=== PATIENT | male | born 1970 | race Caucasian/White ===

== ENCOUNTER 2016-06-07 18:57 | Emergency (ER) | payer OTHER ==
[2016-06-07 19:18] VITALS: BP 124/67
--- NOTE | 2016-06-07 19:45 | EDM.PDOC ---
ED HPI GENERAL MEDICAL PROBLEM - General Chief Complaint: General Stated Complaint: chills, body aches Time Seen by Provider: 06/07/16 19:05 Source of Information: Reports: Patient History Limitations: Reports: No limitations - History of Present Illness INITIAL COMMENTS - FREE TEXT/NARRATIVE: Has 1.5 days of sinus congestion, ear pressure, thick "swelling" throat. Fever started this AM, having some aches and fatigue. 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 Generalized Pain Score (Numeric/FACES): 7 - Related Data Allergies Allergy/AdvReac Type Severity Reaction Status Date / Time No Known Allergies Allergy Verified 06/07/16 19:27 Home Meds: Home Meds Loratadine/Pseudoephedrine [Claritin-D 24 Hour Tablet] 1 each PO DAILY PRN 12/24 [History] Ibuprofen 800 mg PO Q6HR PRN 06/07/16 [History] Pseudoephedrine HCl [Sudafed] 30 mg PO ASDIRECTED PRN 06/07/16 [History] Social & Family History - Tobacco Use Smoking Status *Q: Current Every Day Smoker Years of Tobacco use: 30 Packs/Tins Daily: 1 - Caffeine Use Caffeine Use: Reports: Coffee, Soda - Alcohol Use Days Per Week of Alcohol Use: 2 - Recreational Drug Use Recreational Drug Use: No ED ROS GENERAL - Review of Systems Review Of Systems: ROS reveals no pertinent complaints other than HPI. ED EXAM, GENERAL - Physical Exam Exam: See Below Exam Limited By: No limitations General Appearance: alert, WD/WN, no apparent distress Eye Exam: bilateral eye: EOMI, PERRL Ears: normal external exam, normal canal, hearing grossly normal, other (Serous otitis bilaterally) Nose: nasal drainage Throat/Mouth: Normal inspection, Normal oropharynx, Normal voice, No airway compromise Head: atraumatic, normocephalic Neck: normal inspection, supple, non-tender, full range of motion. No: lymphadenopathy (L), lymphadenopathy (R) Respiratory/Chest: no respiratory distress, lungs clear, normal breath sounds, no accessory muscle use Cardiovascular: normal peripheral pulses, regular rate, rhythm, no edema, no JVD , no murmur GI/Abdominal: soft, non tender Back Exam: normal inspection, full range of motion Extremities: normal inspection, normal range of motion, non-tender, no pedal edema, normal capillary refill Neurological: alert, oriented, CN II-XII intact, normal cognition, normal gait, no motor/sensory deficits Psychiatric: normal affect, normal mood Skin Exam: Warm, Dry, Intact, Normal color, No rash. No: Diaphoretic Lymphatic: no adenopathy Course - Vital Signs Last Recorded V/S: Last Vital Signs Temp 37.4 C 06/07/16 19:16 Pulse 96 06/07/16 19:16 Resp 18 06/07/16 19:16 BP 124/67 06/07/16 19:16 Pulse Ox 96 06/07/16 19:16 Departure - Departure Time of Disposition: 19:56 Disposition: Home, Self-Care 01 Condition: good Clinical Impression: Influenza B Forms: ED Department Discharge - Problem List Review Problem List Initiated/Reviewed/Updated: No - Assessment/Plan Assessment:: Influenza B (1 - 1.5 days) Plan: Tamiflu Prednisone for throat (3 days) Robitussin PRN Warnings given
== END 2016-06-07 20:15 | disposition home or self-care (01) ==
LOC: LL.ED 18:57
DX: J10.1 Influenza due to other identified influenza virus with other respiratory manifestations (principal); F17.210 Nicotine dependence, cigarettes, uncomplicated
CPT/HCPCS: 87804; 99283

== ENCOUNTER 2017-01-10 08:43 | Emergency (ER) | payer OTHER ==
[2017-01-10] MEDS ORDERED: Sodium Chloride 0.9% 10 ML Syringe FLUSH PRN (08:51)
[2017-01-10] MEDS ORDERED: Tamsulosin 0.4 MG Cap.ER PO ONE (08:53)
[2017-01-10] MEDS ORDERED: Ketorolac 30 MG/ML SDV IVPUSH ONE (08:53)
[2017-01-10] MEDS ORDERED: Sodium Chloride 0.9% 1,000 ML IV SCH (09:00)
[2017-01-10 09:34] LABS: CHLORIDE,CL 107 mmol/L (98-107); SODIUM,NA 140 mmol/L (136-145)
[2017-01-10 10:20] VITALS: BP 133/83
[2017-01-10] MEDS ORDERED: Sodium Chloride 0.9% 1,000 ML IV ONE (10:27)
--- NOTE | 2017-01-10 10:38 | EDM.PDOC ---
ED HPI GENERAL MEDICAL PROBLEM - General Chief Complaint: Flank Pain Stated Complaint: Left side flank pain Time Seen by Provider: 01/10/17 09:09 Source of Information: Reports: Patient History Limitations: Reports: No Limitations - History of Present Illness INITIAL COMMENTS - FREE TEXT/NARRATIVE: Sudden left flank pain that started around 5:30 this morning. Wrapped around side. Accompanied by nausea and single episode emesis. History of kidney stone, this feels like that episode. [place] fine yesterday. No recent illness or diet change. No other pain/complaint. No hematuria. left flank Pain Score (Numeric/FACES): 9 - Related Data Allergies Allergy/AdvReac Type Severity Reaction Status Date / Time No Known Allergies Allergy Verified 06/07/16 19:27 Home Meds: Home Meds Loratadine/Pseudoephedrine [Claritin-D 24 Hour Tablet] 1 each PO DAILY PRN 12/24 [History] Ibuprofen 800 mg PO Q6HR PRN 06/07/16 [History] Pseudoephedrine HCl [Sudafed] 30 mg PO ASDIRECTED PRN 06/07/16 [History] Ketorolac [Toradol] 10 mg PO Q6H PRN #14 tablet 01/10/17 [Rx] Ondansetron [Zofran ODT] 4 mg PO Q6H PRN #10 tab.dis 01/10/17 [Rx] Tamsulosin [Flomax] 0.4 mg PO ONETIME PRN #10 cap.er 01/10/17 [Rx] oxyCODONE HCl/Acetaminophen [Percocet 5-325 mg Tablet] 1 each PO ASDIRECTED PRN #15 tablet 01/10/17 [Rx] Past Medical History Respiratory History: Reports: COPD (mild) Endocrine/Metabolic History: Reports: Obesity/BMI 30+ Social & Family History - Tobacco Use Smoking Status *Q: Heavy Tobacco Smoker Years of Tobacco use: 30 Packs/Tins Daily: 2 Used Tobacco, but Quit: No - Caffeine Use Caffeine Use: Reports: Soda - Alcohol Use Days Per Week of Alcohol Use: 2 - Recreational Drug Use Recreational Drug Use: No ED ROS GENERAL - Review of Systems Review Of Systems: See Below Constitutional: Reports: No Symptoms HEENT: Reports: No Symptoms Respiratory: Reports: No Symptoms Cardiovascular: Reports: No Symptoms GI/Abdominal: Reports: Nausea, Vomiting. Denies: Constipation, Diarrhea, Difficulty Swallowing, Distension, Hematemesis, Hematochezia : Reports: Flank Pain. Denies: Dysuria, Frequency, Hematuria, Incontinence, Pain, Urgency Musculoskeletal: Reports: No Symptoms Skin: Reports: No Symptoms Neurological: Reports: No Symptoms Psychiatric: Reports: No Symptoms Hematologic/Lymphatic: Reports: No Symptoms ED EXAM, RENAL/ - Physical Exam Exam: See Below Exam Limited By: No Limitations General Appearance: Alert, WD/WN, Moderate Distress Eye Exam: Bilateral Eye: EOMI, PERRL Ears: Normal External Exam Nose: Normal Inspection Throat/Mouth: Normal Inspection, Normal Voice, No Airway Compromise Head: Atraumatic, Normocephalic Neck: Normal Inspection, Supple, Non-Tender, Full Range of Motion Respiratory/Chest: No Respiratory Distress, No Accessory Muscle Use, Wheezing ( very faint, at bases posteriorly). No: Rales, Rhonchi, Stridor Cardiovascular: Normal Peripheral Pulses, Regular Rate, Rhythm, No Edema, No Murmur GI/Abdominal: Normal Bowel Sounds, Soft, No Distention, Tender (mild, just to left of umbilicus) (Male) Exam: Deferred Rectal (Males) Exam: Deferred Back Exam: CVA Tenderness (L) Extremities: Normal Inspection, Normal Range of Motion, Non-Tender, No Pedal Edema, Normal Capillary Refill Neurological: Alert, Oriented, Normal Cognition, Normal Gait, No Motor/Sensory Deficits Psychiatric: Anxious Skin Exam: Warm, Dry, Intact, Normal Color Course - Vital Signs Last Recorded V/S: Last Vital Signs Temp 37.1 C 01/10/17 09:15 Pulse 68 01/10/17 09:15 Resp 20 01/10/17 09:15 BP 133/83 01/10/17 09:15 Pulse Ox 98 01/10/17 09:15 - Orders/Labs/Meds Orders: Active Orders 24 hr Category Date Time Status Abdomen Pelvis wo Cont [CT] Stat Exams 01/10/17 08:52 Taken Saline Lock Insert [OM.PC] Routine Oth 01/10/17 08:51 Ordered Labs: Laboratory Tests 01/10/17 01/10/17 01/10/17 Range/Units 09:00 09:00 09:50 WBC 6.6 (4.0-10.2) K/uL RBC 5.20 (4.33-5.41) M/uL Hgb 15.5 (13.1-16.8) g/dL Hct 45.5 (39.0-49.0) % MCV 87.5 (84.0-98.0) fL MCH 29.8 (28.2-33.3) pg MCHC 34.1 (31.7-36.0) g/dL RDW 12.7 (11.2-14.1) % Plt Count 202 (150-350) K/uL Neut % (Auto) 57.7 (45.0-80.0) % Lymph % (Auto) 29.4 (10.0-50.0) % [place] % (Auto) 8.9 (2.0-14.0) % Eos % (Auto) 3.5 (0.0-5.0) % Baso % (Auto) 0.5 (0.0-2.0) % Neut # (Auto) 3.84 (1.40-7.00) K/uL Lymph # (Auto) 1.95 (0.50-3.50) K/uL [place] # (Auto) 0.59 (0.00-1.00) K/uL Eos # (Auto) 0.23 (0.00-0.50) K/uL Baso # (Auto) 0.03 (0.00-0.20) K/uL Sodium 140 (136-145) mmol/L Potassium 4.4 (3.5-5.1) mmol/L Chloride 107 (98-107) mmol/L Carbon Dioxide 24.7 (21.0-32.0) mmol/L BUN 24 H (7-18) mg/dL Creatinine 1.24 H (0.51-1.17) mg/dL Est Cr Clr Drug Dosing TNP Estimated GFR (MDRD) > 60 mL/min Glucose 153 H (74-106) mg/dL Calcium 8.7 (8.5-10.1) mg/dL Total Bilirubin 0.4 (0.2-1.0) mg/dL AST 12 L (15-37) U/L ALT 25 (12-78) U/L Alkaline Phosphatase 68 (46-116) IU/L Total Protein 7.4 (6.4-8.2) g/dL Albumin 3.7 (3.4-5.0) g/dL Specimen Type Urinvoid Urine Color Yellow Urine Appearance Clear Urine pH 5.0 (5.0-9.0) Ur Specific [place] 1.020 (1.005-1.030) Urine Protein Negative (NEGATIVE) mg/dL Urine Glucose (UA) Negative (NEGATIVE) mg/dL Urine Ketones Negative (NEGATIVE) mg/dL Urine Occult Blood Large H (NEGATIVE) Urine Nitrite Negative (NEGATIVE) Urine Bilirubin Negative (NEGATIVE) Urine Urobilinogen 0.2 (0.2-1.0) E.U./dL Ur Leukocyte Esterase Negative (NEGATIVE) Urine RBC 10-20 H /HPF Urine WBC 0-5 /HPF Ur Epithelial Cells Occasional /LPF Urine Bacteria Occasional (NONE TO FEW) /HPF Hyaline Casts Rare H (NEGATIVE) /LPF Urine Mucus Few H (NEGATIVE) /LPF Meds: Medications Discontinued Medications Generic Name Dose Route Start Last Admin Trade Name Freq PRN Reason Stop Dose Admin Sodium Chloride 1,000 mls @ 999 mls/hr 01/10/17 09:00 01/10/17 09:31 Normal Saline IV 999 mls/hr ASDIRECTED SHAWNA Administration Sodium Chloride 1,000 mls @ 999 mls/hr 01/10/17 10:27 01/10/17 10:33 Normal Saline IV 01/10/17 11:27 999 mls/hr .BOLUS ONE Administration Ketorolac Tromethamine 30 mg 01/10/17 08:53 01/10/17 09:04 Toradol IVPUSH 01/10/17 08:54 30 mg ONETIME ONE Administration Ondansetron HCl 4 mg 01/10/17 10:47 01/10/17 12:16 Zofran IVPUSH 01/10/17 10:48 Not Given ONETIME ONE Sodium Chloride 10 ml 01/10/17 08:51 Saline Flush FLUSH ASDIRECTED PRN Keep Vein Open Tamsulosin HCl 0.4 mg 01/10/17 08:53 01/10/17 09:21 Flomax PO 01/10/17 08:54 0.4 mg ONETIME ONE Administration - Radiology Interpretation Free Text/Narrative:: 4mm stone distal left ureter, 4-5cm above bladder. No hydronephrosis noted. Has multiple stones identified up within kidneys. CT Results Date: 01/10/17 CT Results Time: 09:28 - Re-Assessments/Exams Free Text/Narrative Re-Assessment/Exam: 01/10/17 10:43 Patient was much more comfortable after receiving Toradol. IV fluids given. Flomax given. Labs showed some hematuria as well as mild increase in BUN/Cr. Patient remained comfortable with minimal discomfort. Plan at this time is to treat as outpatient. Patient will be given Rx for Toradol, Flomax, Percocet, Zofran. He is to follow up with primary clinic Thursday or Thursday. At this time it appears that stone will likely pass on its own. He is to return to the ER if symptoms worsen again. 01/10/17 12:35 smoking cessation discussed and highly encouraged. Departure - Departure Time of Disposition: 11:40 Disposition: Home, Self-Care 01 Condition: Good Clinical Impression: Ureteric colic, Kidney stone on left side - Discharge Information Prescriptions: Ketorolac [Toradol] 10 mg PO Q6H PRN #14 tablet PRN Reason: Pain Ondansetron [Zofran ODT] 4 mg PO Q6H PRN #10 tab.dis PRN Reason: Nausea oxyCODONE HCl/Acetaminophen [Percocet 5-325 mg Tablet] 1 each PO ASDIRECTED PRN #15 tablet PRN Reason: Pain (Severe 7-10) Tamsulosin [Flomax] 0.4 mg PO ONETIME PRN #10 cap.er PRN Reason: Other Instructions: Ketorolac injection, Kidney Stones, [id number], Flank Pain, [id number], Tamsulosin capsules Referrals: Jocelynn Cabrera PA [Primary Care Provider] - Forms: ED Department Discharge Additional Instructions: Screen urine to try to obtain stone. Bring to clinic to have analysis performed to look at what kind of stone this is. Drink plenty of water and stay hydrated. This will help flush the stone through the system. Take Toradol every 6 hours for the next 3 days. You may stop if you pass that stone. Zofran may be used to help with nausea. Take the Percocet ONLY if pain is severe and you are unable to perform your job. Carry the Percocet with you along with Zofran and Toradol as an " emergency pack" in the future if you develop additional kidney stone symptoms. As discussed, there are multiple stones up in the kidneys that may cause problems in the future. Recommend follow up with your primary provider/clinic on Thursday or Thursday if you have not yet passed the stone. Follow up in the ER if pain/worsening symptoms redevelop. Do not take any other NSAIDS while using Toradol as it can really cause problems with your stomach and other things. This includes Motrin/Ibuprofen/ aspirin/Aleve. It is ok to take Tylenol (unless you are taking the Percocet, which has Tylenol within it) - My Orders Last 24 Hours: My Active Orders 01/10/17 08:51 Saline Lock Insert [OM.PC] Routine 01/10/17 08:52 Abdomen Pelvis wo Cont [CT] Stat - Assessment/Plan Last 24 Hours: My Active Orders 01/10/17 08:51 Saline Lock Insert [OM.PC] Routine 01/10/17 08:52 Abdomen Pelvis wo Cont [CT] Stat
[2017-01-10] MEDS ORDERED: Ondansetron 4 MG/2 ML SDV IVPUSH ONE (10:47)
== END 2017-01-10 12:05 | disposition home or self-care (01) ==
LOC: LL.ED 08:43
DX: N20.2 Calculus of kidney with calculus of ureter (principal); E66.9 Obesity, unspecified; J44.9 Chronic obstructive pulmonary disease, unspecified; F17.210 Nicotine dependence, cigarettes, uncomplicated; Z79.899 Other long term (current) drug therapy
CPT/HCPCS: 36415; 74176; 80053; 81001; 85025; 96361; 96374; 99284; A9270; J1885; J7030

== ENCOUNTER 2019-08-05 05:38 | Emergency (ER) | payer OTHER ==
[2019-08-05 05:48] VITALS: BP 183/103; PULSE 74
[2019-08-05] MEDS: Tamsulosin 0.4 MG Cap.ER PO ONE (06:10)
[2019-08-05] MEDS: Ondansetron 4 MG/2 ML SDV IVPUSH ONE ×2 (06:10→08:50)
[2019-08-05] MEDS: Sodium Chloride 0.9% 1,000 ML IV ONE ×2 (06:11→07:31)
[2019-08-05 06:33] LABS: CHLORIDE,CL 105 mmol/L (98-107); SODIUM,NA 138 mmol/L (136-145)
--- NOTE | 2019-08-05 06:34 | EDM.PDOC ---
ED HPI GENERAL MEDICAL PROBLEM - General Chief Complaint: Genitourinary Problem Stated Complaint: Kidney stone Time Seen by Provider: 08/05/19 06:15 Source of Information: Reports: Patient History Limitations: Reports: No Limitations - History of Present Illness INITIAL COMMENTS - FREE TEXT/NARRATIVE: Lower left back pain, nausea, dry heaves starting around 0200. Took 10mg tab Toradol at home. This helped with pain. Unable to locate Zofran/ Flomax. Has had several previous episodes of kidney stones and this feels like similar. No other acute changes reported. Left Flank Pain Score (Numeric/FACES): 6 - Related Data Allergies Allergy/AdvReac Type Severity Reaction Status Date / Time No Known Allergies Allergy Verified 06/07/16 19:27 Home Meds: Home Meds Loratadine/Pseudoephedrine [Claritin-D 24 Hour Tablet] 1 each PO DAILY PRN 12/24 [History] Ibuprofen 800 mg PO Q6HR PRN 06/07/16 [History] Pseudoephedrine HCl [Sudafed] 30 mg PO ASDIRECTED PRN 06/07/16 [History] oxyCODONE HCl/Acetaminophen [Percocet 5-325 mg Tablet] 1 each PO ASDIRECTED PRN #15 tablet 01/10/17 [Rx] Ketorolac [Toradol] 10 mg PO Q6H PRN #12 tablet 08/05/19 [Rx] Tamsulosin [Tamsulosin 24 Hr] 0.4 mg PO DAILY PRN #10 cap.er 08/05/19 [Rx] Past Medical History Respiratory History: Reports: COPD Genitourinary History: Reports: Renal Calculus Endocrine/Metabolic History: Reports: Obesity/BMI 30+ - Past Surgical History HEENT Surgical History: Reports: Oral Surgery Other HEENT Surgeries/Procedures: [place] tooth removal Social & Family History - Tobacco Use Smoking Status *Q: Current Every Day Smoker Years of Tobacco use: 20 Packs/Tins Daily: 0.5 - Caffeine Use Caffeine Use: Reports: Tea - Alcohol Use Alcohol Use History: No - Recreational Drug Use Recreational Drug Use: No ED ROS GENERAL - Review of Systems Review Of Systems: See Below Constitutional: Reports: Decreased Appetite. Denies: Fever, Chills, Malaise, Weakness, Fatigue, Night Sweats, Diaphoresis HEENT: Reports: No Symptoms Respiratory: Reports: No Symptoms Cardiovascular: Reports: No Symptoms GI/Abdominal: Reports: Decreased Appetite, Nausea, Vomiting. Denies: Abdominal Pain, Black Stool, Bloody Stool, Constipation, Diarrhea, Distension : Reports: Urgency. Denies: Dysuria, Frequency, Hematuria Musculoskeletal: Reports: No Symptoms Skin: Reports: No Symptoms Neurological: Reports: No Symptoms Psychiatric: Reports: No Symptoms ED EXAM, GENERAL - Physical Exam Exam: See Below Exam Limited By: No Limitations General Appearance: Alert, WD/WN, No Apparent Distress Ears: Hearing Grossly Normal Throat/Mouth: Normal Lips, Normal Voice, No Airway Compromise Head: Atraumatic, Normocephalic Neck: Supple, Non-Tender Respiratory/Chest: No Respiratory Distress, Lungs Clear, Normal Breath Sounds, No Accessory Muscle Use, Chest Non-Tender Cardiovascular: Regular Rate, Rhythm, No Murmur GI/Abdominal: Normal Bowel Sounds, Soft, Non-Tender. No: Guarding, Rigid, Rebound, Tender (Male) Exam: Deferred Rectal (Males) Exam: Deferred Back Exam: No: CVA Tenderness (L), CVA Tenderness (R), Muscle Spasm, Paraspinal Tenderness, Vertebral Tenderness Extremities: Normal Capillary Refill Neurological: Alert, Oriented, Normal Cognition, Normal Gait, No Motor/Sensory Deficits Psychiatric: Normal Affect, Normal Mood Skin Exam: Warm, Dry, Intact, Normal Color Course - Vital Signs Last Recorded V/S: Last Vital Signs Temp 37.1 C 08/05/19 05:46 Pulse 74 08/05/19 05:46 Resp 16 08/05/19 05:46 BP 183/103 H 08/05/19 05:46 Pulse Ox 98 08/05/19 05:46 - Orders/Labs/Meds Orders: Active Orders 24 hr Category Date Time Status Abdomen Pelvis wo Cont [CT] Stat Exams 08/05/19 08:38 Taken Labs: Laboratory Tests 08/05/19 08/05/19 08/05/19 Range/Units 06:03 06:05 06:05 WBC 11.2 H (4.0-10.2) K/uL RBC 5.15 (4.33-5.41) M/uL Hgb 15.2 (13.1-16.8) g/dL Hct 45.0 (39.0-49.0) % MCV 87.4 (84.0-98.0) fL MCH 29.5 (28.2-33.3) pg MCHC 33.8 (31.7-36.0) g/dL RDW 13.1 (11.2-14.1) % Plt Count 224 (150-350) K/uL Neut % (Auto) 76.5 (45.0-80.0) % Lymph % (Auto) 14.3 (10.0-50.0) % [place] % (Auto) 7.8 (2.0-14.0) % Eos % (Auto) 1.0 (0.0-5.0) % Baso % (Auto) 0.4 (0.0-2.0) % Neut # (Auto) 8.60 H (1.40-7.00) K/uL Lymph # (Auto) 1.60 (0.50-3.50) K/uL [place] # (Auto) 0.87 (0.00-1.00) K/uL Eos # (Auto) 0.11 (0.00-0.50) K/uL Baso # (Auto) 0.04 (0.00-0.20) K/uL Sodium 138 (136-145) mmol/L Potassium 4.2 (3.5-5.1) mmol/L Chloride 105 (98-107) mmol/L Carbon Dioxide 24.9 (21.0-32.0) mmol/L BUN 25 H (7-18) mg/dL Creatinine 1.28 H (0.51-1.17) mg/dL Est Cr Clr Drug Dosing 72.11 mL/min Estimated GFR (MDRD) > 60 mL/min Glucose 149 H (74-106) mg/dL Calcium 8.5 (8.5-10.1) mg/dL Total Bilirubin 0.5 (0.2-1.0) mg/dL AST 19 (15-37) U/L ALT 27 (12-78) U/L Alkaline Phosphatase 59 (46-116) IU/L Total Protein 7.5 (6.4-8.2) g/dL Albumin 3.9 (3.4-5.0) g/dL Specimen Type Urinvoid Urine Color Yellow Urine Appearance Clear Urine pH 5.5 (5.0-9.0) Ur Specific [place] >= 1.030 (1.005-1.030) Urine Protein Trace H (NEGATIVE) mg/dL Urine Glucose (UA) Negative (NEGATIVE) mg/dL Urine Ketones Negative (NEGATIVE) mg/dL Urine Occult Blood Moderate H (NEGATIVE) Urine Nitrite Negative (NEGATIVE) Urine Bilirubin Negative (NEGATIVE) Urine Urobilinogen 0.2 (0.2-1.0) E.U./dL Ur Leukocyte Esterase Negative (NEGATIVE) Urine RBC 5-10 H /HPF Urine WBC 0-5 /HPF Amorphous Sediment Few (0/HPF) /HPF Urine Bacteria Rare (NONE TO FEW) /HPF Urine Mucus Moderate H (NEGATIVE) /LPF Meds: Medications Discontinued Medications Generic Name Dose Route Start Last Admin Trade Name Freq PRN Reason Stop Dose Admin Hydromorphone HCl 1 mg 08/05/19 08:36 Dilaudid IVPUSH ASDIRECTED PRN Pain Sodium Chloride 1,000 mls @ 999 mls/hr 08/05/19 06:02 08/05/19 06:11 Normal Saline IV 08/05/19 07:02 999 mls/hr .BOLUS ONE Administration Sodium Chloride 1,000 mls @ 999 mls/hr 08/05/19 07:00 08/05/19 07:31 Normal Saline IV 08/05/19 08:00 999 mls/hr .BOLUS ONE Administration Sodium Chloride 1,000 mls @ 125 mls/hr 08/05/19 08:45 08/05/19 08:40 Normal Saline IV 125 mls/hr ASDIRECTED SHAWNA Administration Ketorolac Tromethamine 30 mg 08/05/19 06:17 08/05/19 06:42 Toradol IVPUSH 08/05/19 06:18 30 mg ONETIME ONE Administration Ondansetron HCl 4 mg 08/05/19 06:01 08/05/19 06:10 Zofran IVPUSH 08/05/19 06:02 4 mg ONETIME ONE Administration Ondansetron HCl 4 mg 08/05/19 08:43 08/05/19 08:50 Zofran IVPUSH 08/05/19 08:44 4 mg ONETIME ONE Administration Sodium Chloride 10 ml 08/05/19 06:02 08/05/19 08:50 Saline Flush FLUSH 10 ml ASDIRECTED PRN Administration Flush Tamsulosin HCl 0.4 mg 08/05/19 06:01 08/05/19 06:10 Flomax PO 08/05/19 06:02 0.4 mg ONETIME ONE Administration - Re-Assessments/Exams Free Text/Narrative Re-Assessment/Exam: 08/05/19 06:36 Suspect kidney stone. Elevated BP suspected to reflect acute pain complaint. No hx HTN. Patient declined CT scan. Says historically his stones have been small /passable. OK to get labs and IV fluids. Flomax/Toradol/Zofran given. Plan is to give two liters of fluid over the next several hours. If patient is doing well consider d/c home. Free Text/Narrative Re-Assessment/Exam: 08/05/19 12:22 Pain returned after second liter IVNS infused. Patient agreeable to have CT to look for stone. Changes noted by Radiology in left kidney that were consistent with urolithiasis but no stone noted in ureter. There was a stone in the bladder on right side however that was recently passed. No acute changes noted right kidney and no right sided back pain. An hour after scan performed patient 's discomfort was down to a 2-3, best level of comfort compared to when pain began. No evidence of UTI noted. Patient wished to go home. Precautions reviewed prior to discharge. He is to follow up as needed depending on clinical course. Recommend recheck by primary provider if discomfort has not completely resolved over the weekend. Departure - Departure Time of Disposition: 10:00 Disposition: Home, Self-Care 01 Condition: Good Clinical Impression: Kidney stone - Discharge Information *PRESCRIPTION DRUG MONITORING PROGRAM REVIEWED*: Not Applicable *COPY OF PRESCRIPTION DRUG MONITORING REPORT IN PATIENT JAIME: Not Applicable Prescriptions: Ketorolac [Toradol] 10 mg PO Q6H PRN #12 tablet PRN Reason: Pain Tamsulosin [Tamsulosin 24 Hr] 0.4 mg PO DAILY PRN #10 cap.er PRN Reason: Other Instructions: Ketorolac injection, Ondansetron injection, Kidney Stones, Easy- to-Read Referrals: PCP,None [Primary Care Provider] - Forms: ED Department Discharge, ED Return to Work/School Form Additional Instructions: Rest, stay hydrated. Do not take regular Ibuprofen or Aleve/Naproxen if you are using the Toradol as combined effect may lead to GI bleed. Follow up in ER if you have sudden worsening problems such as worsening pain/ fever. Recommend CT scan if stone doesn't pass/pain does not go away over the next week. Sepsis Event Note - Evaluation Sepsis Screening Result: No Definite Risk - Focused Exam Vital Signs: Vital Signs Temp Pulse Resp BP Pulse Ox 08/05/19 05:46 37.1 C 74 16 183/103 H 98 Date Exam was Performed: 08/05/19 Time Exam was Performed: 12:22 - My Orders Last 24 Hours: My Active Orders 08/05/19 08:38 Abdomen Pelvis wo Cont [CT] Stat - Assessment/Plan Last 24 Hours: My Active Orders 08/05/19 08:38 Abdomen Pelvis wo Cont [CT] Stat
[2019-08-05] MEDS: Ketorolac 30 MG/ML SDV IVPUSH ONE (06:42)
[2019-08-05] MEDS ORDERED: HYDROmorphone 1 MG/ML Syringe IVPUSH PRN (08:36)
[2019-08-05] MEDS: Sodium Chloride 0.9% 1,000 ML IV SCH (08:40)
[2019-08-05] MEDS: Sodium Chloride 0.9% 10 ML Syringe FLUSH PRN (08:50)
== END 2019-08-05 10:25 | disposition home or self-care (01) ==
LOC: LL.ED 05:38
DX: N20.0 Calculus of kidney (principal); J44.9 Chronic obstructive pulmonary disease, unspecified; F17.210 Nicotine dependence, cigarettes, uncomplicated; E66.9 Obesity, unspecified; Z68.39 Body mass index [BMI] 39.0-39.9, adult
CPT/HCPCS: 36415; 74176; 80053; 81001; 85025; 96361; 96374; 96375; 96376; 99284-25; A9270-GY; J1885; J2405; J7030

== ENCOUNTER 2024-11-17 10:22 | Day surgery (SDC) | payer OTHER ==
[~2024-11-17 10:22] MED LIST: Midazolam 1 MG/ML 2 ML SDV ONE; Propofol 200 MG/20 ML SDV ONE; Sodium Chloride 0.9% 10 ML Syringe FLUSH PRN
[2024-11-17] MEDS: Lactated Ringers 1,000 ML IV SCH (11:45)
[2024-11-17 13:09] VITALS: PULSE 82
[2024-11-17 13:10] VITALS: BP 116/72
== END 2024-11-17 13:27 | disposition home or self-care (01) ==
LOC: LL.SDS 10:22
PROVIDERS: ATTEND Surgery
DX: Z12.11 Encounter for screening for malignant neoplasm of colon (principal); D12.0 Benign neoplasm of cecum; K64.8 Other hemorrhoids; E11.9 Type 2 diabetes mellitus without complications; E78.2 Mixed hyperlipidemia; E66.9 Obesity, unspecified; Z79.84 Long term (current) use of oral hypoglycemic drugs; Z91.09 Other allergy status, other than to drugs and biological substances; Z68.38 Body mass index [BMI] 38.0-38.9, adult; Z79.899 Other long term (current) drug therapy; Z86.0100 Personal history of colon polyps, unspecified
CPT/HCPCS: 00811; 82947; J2250; J2704; J7120